=== PATIENT | male | born 1935 | race Caucasian/White ===

== ENCOUNTER → 2024-05-17 09:08 | Outpatient (REF) | payer OTHER, SELFPAY | LOC: RCS 09:08 | PROVIDERS: ATTENDING PHYSICIAN Internal Medicine Cardiovascular Disease; FAMILY PHYSICIAN Student in an Organized Health Care Education/Training Program | DX: Z98.61 Coronary angioplasty status (principal) | CPT/HCPCS: 93306 ==

== ENCOUNTER → 2024-05-20 15:10 | Outpatient (REF) | payer OTHER, SELFPAY | LOC: RAD 15:10 | PROVIDERS: ATTENDING PHYSICIAN Internal Medicine Cardiovascular Disease | DX: Z95.810 Presence of automatic (implantable) cardiac defibrillator (principal); I77.9 Disorder of arteries and arterioles, unspecified; I73.9 Peripheral vascular disease, unspecified; I50.21 Acute systolic (congestive) heart failure; I50.82 Biventricular heart failure | CPT/HCPCS: 71046 ==

== ENCOUNTER 2024-06-21 09:28 | Inpatient (IN) | payer OTHER, SELFPAY ==
[2024-06-17] VITALS (11 sets, daily range): BP systolic 102–124; BP diastolic 53–77; BMI 19.8; BMI 19.0
--- NOTE | 2024-06-17 09:27 | ED.GENMED ---
History of Present Illness
General
Chief Complaint: Chest Pain
Source: patient
Time Seen by Provider: 06/17/24 09:14
History of Present Illness
History of Present Illness:
89-year-old male started with midsternal lower chest pain at 530 this morning. Woke him from his sleep. Moderate nature. Now minimal. Continuous since this morning. No pleuritic pain no radiation to the back arms jaw or neck. No shortness of
breath or nausea. Minimal relief with nitroglycerin. Previous complicated cardiac history including cardiac stents CABG AICD for EF.
Past History
Past History
ED Past Medical History: CAD, GERD, HTN, Hypercholesterolemia, NIDDM, Other (Cardiomyopathy with an EF of 45%, peripheral artery disease status post left femoral endarterectomy, hiatal hernia) and Other (Diverticulosis)
ED Past Surgical History: Cardiac, Tonsilectomy and Other (Prostatectomy, CABG, endarterectomy bilateral femoral arteries, left carotid endarterectomy, tonsillectomy)
Social History
Tobacco: Non-smoker
Alcohol: None
Drug: None
Personal:
Living: with family
Employment: Retired
Family History
Family History: Other (n/c)
Review of Systems
Review of Systems
All Other Systems: Not applicable
Constitutional: Denies fever
Respiratory: Reports no symptoms
ABD/GI: Reports no symptoms
Phy Exam
Physical Exam
Physical Exam:
GENERAL: Alert and oriented in no apparent distress
EYE: Orbits normal.
NECK: Supple, no significant adenopathy.
ENT: Pharynx without erythema
CARDIAC: Regular rate and rhythm with moderate midsystolic murmur. Pacer upper chest wall
LUNGS: Clear breath sounds,normal
ABDOMEN: Soft, without focal tenderness or distention
NEUROLOGICAL: Alert and oriented , grossly non-focal
SKIN: Warm and dry, no rash or lesion, no discoloration, skin intact.
MUSCULOSKELETAL: No edema,no deformity.Good color
PSYCH: Normal and appropriate interaction.
Scores
Heart Score for Chest Pain Patients
STEMI patient?: No
History: Moderately Suspicious
ECG: Nonspecific Repolarization
Age: >/= 65 years
Risk Factors: >/= 3 Risk Factors or History of CAD
Troponin: >1 - <3 x Normal Limit
Heart Score for Chest Pain Patients: 7
Heart Score Risk: 72.7 % MACE over next 6 weeks
Course
Orders/Labs/Results
Orders:
Orders
06/17/24 08:52
EKG [Electrocardiogram (*1)] Urgent
Reason for Study: Chest Pain
EKG- Treatment ONCE
06/17/24 09:26
CXR2 [CR Chest - 2 Views ] Urgent
Comment:
Reason For Exam: cp
06/17/24 09:27
CMP [Comprehensive Metabolic Panel] Urgent
Complete Blood Count/With Diff Urgent
Lipase Urgent
Troponin I Urgent
06/17/24 12:14
Electrocardiogram (*1) Stat
Reason for Study: Other
Other Reason for Exam: chest pain
EKG- Treatment ONCE
06/17/24 12:40
NT-proBNP Urgent
Troponin I Urgent
06/17/24 12:48
Potassium Urgent
Abnormal Lab Results
06/17/24
09:27
RBC 3.04 L 10^6/uL
(4.70-6.10)
Hgb 11.0 L g/dL
(13.0-18.0)
Hct 33.0 L %
(39.0-52.0)
MCV 108.6 H fL
(80.0-94.0)
MCH 36.2 H pg
(27.0-31.0)
RDW 15.9 H %
(11.5-14.5)
Absolute Lymphs (auto) 0.5 L 10^3/uL
(1.2-3.4)
Neutrophils % 76.1 H %
(42.2-75.2)
Lymphocytes % 9.8 L %
(20.5-51.1)
Monocytes % 10.5 H %
(1.7-9.3)
Potassium 5.5 H mmol/L
(3.5-5.1)
BUN 24 H mg/dl
(9-20)
Glucose 174 H mg/dl
(70-99)
Troponin I 0.076 H* ng/ml
06/17/24 09:27
Vital Signs
Initial and Last Documented VS:
Initial Vital Signs
Temp Pulse Resp BP Pulse Ox
97.7 F 80 18 111/60 99
06/17/24 08:59 06/17/24 08:59 06/17/24 08:59 06/17/24 08:59 06/17/24 08:59
Last Documented Vital Signs
Temp Pulse Resp BP Pulse Ox
97.7 F 72 16 120/57 98
06/17/24 08:59 06/17/24 11:30 06/17/24 11:30 06/17/24 11:00 06/17/24 11:30
MDM/Problems Addressed
Differential Diagnosis Includes:
Patient with a complicated cardiac history. Known stents that are down. Vague chest discomfort. Labs and troponin pending. Will also ask for cardiology evaluation. Had an episode of atrial fibrillation yesterday that was brief
*Radiology
Radiology exam reviewed: preliminary read by ED provider (Negative) and radiology read reviewed (Small left effusion)
*EKG
Comparison EKG: no changes
Heart Rate: 79
Rate: normal
Rhythm: other (Atrial sensed ventricular paced)
*Critical Care Note
Total Time (30-74mins, 75-104mins- exclusive of procedures): Not Applicable
Data Reviewed
Review of Other/Old Records Reveals: Labs, Records, Radiology Studies, Testing and Discharge Summary
Update Note
Update Note:
Repeat EKG stable. Discussed with cardiology. Discussed with hospitalist. Patient will be admitted for further cardiac evaluation
ED Attending Note
-
Portions of this chart may have been created with voice recognition software.� Occasional wrong word or��sound alike� substitutions may have occurred due to the inherent limitations of voice recognition software.
Discharge Plan
Departure
Patient Disposition: Admit
Date of Disposition: 06/17/24
Time of Disposition: 12:49
Presentation/result/management discussed w/ accepting MD/DO: Cardiology
Discharge Problem:
Unstable angina
Prescriptions:
No Action
lutein 6 MG capsule
6 mg PO NOON
coenzyme Q10 [Co Q-10] 30 MG capsule
30 mg PO NOON
ascorbic acid (vitamin C) [Vitamin C] 500 MG tablet
500 mg PO NOON
atorvastatin 80 MG tablet
80 mg PO QPM
cyanocobalamin (vitamin B-12) 1,000 MCG tablet
1,000 mcg PO NOON
cholecalciferol (vitamin D3) 1,000 UNITS tablet
1,000 units PO NOON
multivitamin with folic acid [Tab-A-Jennifer] 1 TABLET tablet
1 tab PO NOON
metoprolol succinate 25 MG tablet extended release 24 hr
12.5 mg PO BID 30 Days Qty: 60 0RF
ranolazine 1,000 mg Tablet Extended Release 12 Hr
1,000 mg PO BID
Eliquis 5 mg Tablet
5 mg PO BID
Jardiance 25 mg Tablet
12.5 mg PO DAILY
Entresto 49-51 mg Tablet
0.5 tab PO BID
spironolactone 12.5 MG tablet
12.5 mg PO MOWEFR@0800
digoxin 62.5 mcg (0.0625 mg) Tablet
62.5 mcg PO DAILY
Referrals:
Yanira Corona MD [Family Provider] -
Interventions
Interventions:
*Risk Screen - Suicide Last Done: 06/17/24 09:31
*General Assessment Last Done: 06/17/24 09:31
*Neglect/Abuse Screening Last Done: 06/17/24 09:31
ED- Fall Risk Assessment Last Done: 06/17/24 09:31
*ED COVID-19 Vaccine History Last Done: 06/17/24 09:31
ED- Cardiac Assessment Last Done: 06/17/24 09:30
Discharge Date and Time
Print Language: DIVEHI
[2024-06-17 09:42] LABS: % Basophils 0.4 % (0-2); % Eosinophils 2.8 % (0-6); % Immature Granulocytes 0.4 % (0-0.5); % Lymphocytes 9.8 % (20.5-51.1); % Monocytes 10.5 % (1.7-9.3); % Neutrophils 76.1 % (42.2-75.2); Absolute Eosinophils 0.2 10^3/uL (0-0.7); Absolute Lymphocytes 0.5 10^3/uL (1.2-3.4); Absolute Monocytes 0.6 10^3/uL (0.1-0.6); Absolute Neutrophils 4.1 10^3/uL (1.4-6.5); Mean Corp Hgb Conc. 33.3 g/dL (33.0-37.0); Mean Corpuscular Hgb 36.2 pg (27.0-31.0); Mean Corpuscular Volume 108.6 fL (80.0-94.0); Mean Platelet Volume 10.4 fL (7.4-10.4); Nucleated Red Blood Cells % 0 % (-); Platelet Count 225 10^3/uL (130-400); Red Blood Cell Count 3.04 10^6/uL (4.70-6.10); Red Cell Dist. Width 15.9 % (11.5-14.5); White Blood Cell Count 5.3 10^3/uL (4.8-10.8)
[2024-06-17 09:55] LABS: ALT (SGPT) 27 U/L (0-50); AST (SGOT) 38 U/L (17-59); Alkaline Phosphatase 104 U/L (38-126); Blood Urea Nitrogen 24 mg/dl (9-20); Calcium 9.6 mg/dl (8.4-10.2); Carbon Dioxide 24 mmol/L (22-30); Chloride 104 mmol/L (98-107); Estimated Creatinine Clearance 47 ml/min; Glucose 174 mg/dl (70-99); Lipase 206 U/L (23-300); Potassium 5.5 mmol/L (3.5-5.1); Sodium 141 mmol/L (135-145); Total Bilirubin 0.8 mg/dl (0.2-1.3); eGFR > 60.00
[2024-06-17 10:20] LABS: Troponin I 0.076 ng/ml
--- NOTE | 2024-06-17 11:48 | CON.CAR ---
Addendum entered and electronically signed by Stewart Velasquez MD 06/17/24 14:25:
89-year-old with chest discomfort, troponin 0.076 and history of CABG 26 years ago. Known occlusion of left main and right coronary artery, with occlusion of vein graft to RCA and obtuse marginal system, patent NEGRETE to LAD, evaluated for TAVR at
the [facility] this past spring and found to have only moderate aortic stenosis. Currently he is essentially pain-free. He had atrial fibrillation 2 days ago for 6 and half hours, new diagnosis, and Eliquis was recommended. Currently he feels comfortable.
PMH/PSH: CAD/CABG/ischemic cardiomyopathy/dual-chamber ICD, diabetes, hyperlipidemia, PAD with prior CASH VAN SALESPERSON stents, left carotid endarterectomy, GERD, hypertension, prostate cancer status post prostatectomy, CKD, PAF
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
FH: Noncontributory
Allergies to penicillin and sulfa
Medications: See summary screen - hypotension has been a limiting issue with regards to GDMT
ROS: Negative except as above
121/72, pulse 74, respirate 25 afebrile, head neck exam with temporal wasting, lungs are clear, aortic stenosis murmur, radiates to carotids, JVD approximately 12, murmur radiates to the apex, abdomen scaphoid, extremities without edema distal
pulses diminished, neuro nonfocal
Normal sinus rhythm, EKG AV paced
Chest x-ray effusion left base, possible infiltrate on the left, possibly curly lines, cardiomegaly, ICD
White count 5.3, hemoglobin 11, BUN/creatinine 24 and 1.0, potassium was 5.5, proBNP is 9170, troponin is 0.77, had been 0.076
Plan:
He presents with a non-ST segment elevation NM. To the best of our knowledge his his entire cardiac perfusion is in the mid LAD with occlusion of the left main and right coronary with loss of vein grafts to the RCA and OM, with aortic stenosis that
is moderate by our most recent echo in April 2023, with an EF of 20 to 25% and mild mitral and aortic regurgitation. Peak and mean aortic valve gradients are 30 and 14 with a valve area 1.1. Pulmonary artery pressure was 45.
His proBNP is elevated. Will give IV Lasix x 1
Blood pressure is 121/72. He has an infiltrate at the left base which is probably an effusion related to CHF. Recommend furosemide 20 mg IV x 1.
Given his jump in troponin will heparinize for now and convert to Eliquis..
He is comfortable now. Would be desirable to avoid catheterization. Will discuss with interventional cardiology.
Original Note:
Consultation
Consultation Request
Date/Time Consultation Requested: 06/17/2024
Date/Time Consultation Performed: 06/17/2024 1130
Requesting Provider: Dr Hedrick
Performing Provider: FAROOQ Ac for Dr Velasquez
Reason for Consultation: chest pain
Medical History
-
Chief Complaint: chest pain
History of Present Illness:
Mr Urbina presents to the ED this morning after waking up at 5 AM with 5 out of 10 dull substernal chest pain. No associated symptoms. He took 1 sublingual nitroglycerin with no relief. He took 2 additional sublingual nitroglycerin with
improvement in discomfort to 1 out of 10. He called our office and was advised to go to the emergency room for evaluation. Pain currently 0-1 out of 10, 'I have to think about it to feel it'. Of note, we received a Remote alert from his ICD on
06/15/2024 that he had a 6-1/2-hour episode of atrial fibrillation, heart rates controlled. He has no known history of atrial fibrillation. He was advised to start Eliquis 5 mg twice daily and stop aspirin. 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
Besides today's episode, he has had no chest pain. He denies exertional symptoms. He is not very active due to leg weakness and pain from PAD. He goes to the [facility] once a week. He does not get chest pain with this level of activity. He is on a
stable heart failure regimen and weight has been in stable range at home, 137.5 pounds yesterday. He takes Lasix 20 mg 3 times a week with an extra dose if his weight goes above 146. He has not needed an extra dose in some time.
He ate [place] food for dinner last night but does not feel that his symptoms are due to indigestion.
ER workup: Troponin 0.076, EKG V-paced. Hemoglobin 11.0, BUN/creatinine 24/1.0, potassium 5.5.
Past medical history:
Coronary artery disease status post CABG x 3 () and PCI/CHRIS SVG to PDA 06/17/2021
Ischemic cardiomyopathy
Chronic heart failure reduced EF
Medtronic dual-chamber ICD 10/22/2021
Diabetes mellitus type 2, managed with diet
Hyperlipidemia
Peripheral arterial disease status post left femoral endarterectomy, drug-eluting balloon to right common femoral artery, CASH VAN SALESPERSON right femoral artery
Carotid artery disease status post CEA 07/03 on left
GERD
Hypertension
IBS
Prostate cancer status post prostatectomy
Stage III chronic kidney disease
Atrial fibrillation diagnosed 06/15/2024
Past Medical History
Past Medical History: Other (As above)
Past Surgical History: Other (As above)
Social History
Tobacco: Former Smoker
Alcohol: None
Family History
Family History: Other (Father 95 years, [place], CAD, mother 73 heart disease)
Allergies / Home Medications
Allergy/AdvReac Type Severity Reaction Status Date / Time
Penicillins Allergy Hives Verified 06/17/24 09:03
Sulfa (Sulfonamide Allergy Hives Verified 06/17/24 09:03
Antibiotics)
�Medication �Instructions �Recorded �Confirmed �Type
coenzyme Q10 30 mg capsule (Co 30 mg PO NOON Supplement 06/19/15 06/17/24 History
Q-10)
lutein 6 mg capsule 6 mg PO NOON Supplement 06/19/15 06/17/24 History
ascorbic acid (vitamin C) 500 mg 500 mg PO NOON Supplement 06/29/17 06/17/24 History
tablet (Vitamin C)
atorvastatin 80 mg tablet 80 mg PO QPM High cholesterol 07/29/21 06/17/24 History
cholecalciferol (vitamin D3) 25 1,000 units PO NOON Supplement 07/29/21 06/17/24 History
mcg (1,000 unit) tablet
cyanocobalamin (vitamin B-12) 1,000 mcg PO NOON Supplement 07/29/21 06/17/24 History
1,000 mcg tablet
multivitamin with folic acid 400 1 tab PO NOON Supplement 07/29/21 06/17/24 History
mcg tablet (Tab-A-Jennifer)
metoprolol succinate 25 mg 12.5 mg (1/2 x 25 mg) PO BID 30 10/24/21 06/17/24 Rx
tablet,extended release 24 hr days #60 tabs
apixaban 5 mg tablet (Eliquis) 5 mg PO BID 06/17/24 06/17/24 History
digoxin 62.5 mcg (0.0625 mg) tablet 62.5 mcg PO DAILY 06/17/24 06/17/24 History
empagliflozin 25 mg tablet 12.5 mg PO DAILY 06/17/24 06/17/24 History
(Jardiance)
ranolazine 1,000 mg 1,000 mg PO BID 06/17/24 06/17/24 History
tablet,extended release,12 hr
sacubitril 49 mg-valsartan 51 mg 0.5 tab PO BID 06/17/24 06/17/24 History
tablet (Entresto)
spironolactone 25 mg tablet 12.5 mg PO MOWEFR@0800 06/17/24 06/17/24 History
Review of Systems
-
History Source: Patient
All other systems: Negative unless noted
Physical Exam
Vital Signs
Temp Pulse Resp BP Pulse Ox
97.7 F 72 16 120/57 98
06/17/24 08:59 06/17/24 11:30 06/17/24 11:30 06/17/24 11:00 06/17/24 11:30
Lab Results
06/17/24 09:27
06/17/24 09:27
Troponin I 0.076 ng/ml H* 06/17/24 09:27
GEN: No distress, awake, Ox3
HEENT: supple, anicteric, mmm
LUNGS: CTA, no wheezes/rales
CV: Reg, S1/S2, 2 out of 6 systolic ejection murmur left sternal border
ABD: soft, BS+, NT/ND
EXT: No edema
NEURO: Gross non-focal
SKIN: No rash
Impression / Plan
-
PCP: Yanira Corona
Cardiology: Stewart Velasquez
Impression:
Chest pain waking from sleep, mildly elevated troponin
Coronary artery disease status post CABG and stenting, most recently CHRIS to SVG to PDA 06/17/2021
Ischemic cardiomyopathy
Chronic heart failure reduced EF
Aortic stenosis
Peripheral arterial disease status post left carotid endarterectomy, right left femoral endarterectomy
Atrial fibrillation, new diagnosis 06/15/2024
Dual-chamber ICD, Medtronic
Previous cardiovascular testing:
Echocardiogram 05/17/2024: EF 16%, restrictive filling pattern, mild MR, moderate , peak/mean 36/20, RICHARD 0.8, mild AI, mild TR, normal RV
Echocardiogram 04/2023: EF 20 to 25%
Cardiac catheterization 10/15/2021: 100% occluded left main, 100% occluded LAD with entirety of LAD filled by patent NEGRETE to mid LAD graft, patent circumflex filled by collaterals, 100% proximal RCA occlusion filled via SVG to PDA graft, 50%/eccentric
60% mid RCA stenosis, 95% distal SVG to PDA stenosis, diffuse SVG to OM disease, widely patent NEGRETE to LAD, EF 20%, global hypokinesis with posterior basal/diaphragmatic inferior wall akinesis, successful restenting of SVG-PDA w/ overlapping Promus
stent extending beyond previously placed Xience stent
R/LHC 12/24/2023 at [facility]: Occluded [place] vessels including 100% occluded left main, LAD, left circumflex. RCA occluded proximally. Grafts: Patent NEGRETE to LAD, SVG to PDA occluded, SVG to OM 2 sluggish flow approximately until it becomes occluded
RA: 9, PA 55/17, pulmonary capillary wedge pressure 25, cardiac index 2.3
Myocardial perfusion imagin03/02/2023: Fixed defect of basal anterior septal, basal inferior lateral, basal inferior, basal inferior septal segment, mid anterior septal, mid inferior lateral, mid inferior and mid inferior septal segments
consistent with infarction, functional imaging shows global hypokinesis.
Plan:
-Chest pain upon awakening, 5/10, decreased to 0-1/10 after 3 sublingual nitro.
Troponin mildly elevated x 1, repeat and trend troponins and check serial EKGs
-admit to telemetry
Has extensive history of coronary artery disease status post CABG and multiple stents as well as risk factors including PAD, diabetes, hypertension. Most recent cardiac cath 12/24/2023 shows occluded [place] vessels, occluded vein grafts, patent NEGRETE
to LAD
-Will try to obtain films from cath at [facility]
Heart failure reduced EF:
-Euvolemic on exam with stable weight.
Check BNP
-On good outpatient medication regimen including Entresto, Toprol, spironolactone, digoxin, and as needed Lasix. potassium 5.5 but previously in normal range.. Would repeat. If remains elevated would need to stop spironolactone
-Recent echo 05/17/2024 showed decline in EF to 16%, normal RV. Continue medical therapy
A-fib:
New diagnosis as of 06/15/2024, detected remotely, 6-1/2-hour episode. Currently in normal sinus rhythm.
Will likely start Eliquis 5 mg twice daily
-Check TSH
Aortic stenosis:
-Moderate on recent echocardiogram 05/17/2024
--- NOTE | 2024-06-17 13:10 | HPS.HSE ---
Family Physician
-
Family Physician: Yanira Corona MD
Chief Complaint
-
chest pain
History of Present Illness
89-year-old male past medical history of CAD status post CABG x 3, ischemic cardiomyopathy, HFrEF with ICD, paroxysmal atrial fibrillation, moderate aortic stenosis, PAD status post left femoral endarterectomy, drug-eluting balloon to right common
femoral artery, PASTRY SUPERVISOR right femoral artery, carotid artery disease status post CEA 2017 on the left, type 2 diabetes, hyperlipidemia, hypertension, GERD, IBS, prostate cancer status post prostatectomy, CKD 3B, presenting with dull substernal chest
pain starting this morning upon waking up. He took 1 sublingual nitroglycerin without relief. He took 2 additional with improvement. Denies any shortness of breath. Weight has been stable.
[employer] received an alert from his ICD on 06/15 he has 6.5 hours of atrial fibrillation normal heart rate. No prior history of atrial fibrillation. He was advised to start Eliquis was not started yet.
Patient drinks 1 glass of beer every night. He denies smoking.
Medical History
Past Medical History
Past Medical History: Reports Other (CAD status post CABG x 3, ischemic cardiomyopathy, HFrEF with ICD, paroxysmal atrial fibrillation, moderate aortic stenosis, PAD status post left femoral endarterectomy, drug-eluting balloon to right common
femoral artery, PASTRY SUPERVISOR right femoral artery, carotid artery disease status post CEA 2017 on the )
Past Surgical History: Reports None
Social History
Tobacco: Non-smoker
Alcohol: Daily
Drug: None
Family History
Family History: Not pertinent
Allergies / Home Medications
Allergies reflects when Allergies were last updated in [facility].
Home Medications with original date entered in [facility]
Allergy/Medication List:
Allergies
Allergy/AdvReac Type Severity Reaction Status Date / Time
Penicillins Allergy Hives Verified 06/17/24 09:03
Sulfa (Sulfonamide Allergy Hives Verified 06/17/24 09:03
Antibiotics)
Home Medications
coenzyme Q10 30 mg capsule (Co Q-10) 30 mg PO NOON Supplement 06/19/15
lutein 6 mg capsule 6 mg PO NOON Supplement 06/19/15
ascorbic acid (vitamin C) 500 mg tablet (Vitamin C) 500 mg PO NOON Supplement 06/29/17
atorvastatin 80 mg tablet 80 mg PO QPM High cholesterol 07/29/21
cholecalciferol (vitamin D3) 25 mcg (1,000 unit) tablet 1,000 units PO NOON Supplement 07/29/21
cyanocobalamin (vitamin B-12) 1,000 mcg tablet 1,000 mcg PO NOON Supplement 07/29/21
multivitamin with folic acid 400 mcg tablet (Tab-A-Jennifer) 1 tab PO NOON Supplement 07/29/21
metoprolol succinate 25 mg tablet,extended release 24 hr 12.5 mg (1/2 x 25 mg) PO BID 30 days #60 tabs 10/24/21
apixaban 5 mg tablet (Eliquis) 5 mg PO BID 06/17/24
digoxin 62.5 mcg (0.0625 mg) tablet 62.5 mcg PO DAILY 06/17/24
empagliflozin 25 mg tablet (Jardiance) 12.5 mg PO DAILY 06/17/24
ranolazine 1,000 mg tablet,extended release,12 hr 1,000 mg PO BID 06/17/24
sacubitril 49 mg-valsartan 51 mg tablet (Entresto) 0.5 tab PO BID 06/17/24
spironolactone 25 mg tablet 12.5 mg PO MOWEFR@0800 06/17/24
Review of Systems
-
History Source: Patient
A 12 point ROS was completed and negative except as noted: Yes
Constitutional: Reports No Symptoms
EENT: Reports No Symptoms
Respiratory: Reports No Symptoms
Cardiac: Reports See HPI
Abdomen/GI: Reports No Symptoms
: Reports No Symptoms
Musculoskeletal: Reports No Symptoms
Skin: Reports No Symptoms
Neurological: Reports No Symptoms
Endocrine: Reports No Symptoms
Hematologic/Lymphatic: Reports No Symptoms
Psych: Reports No Symptoms
Physical Exam
Vital Signs
Vital Signs
Temp Pulse Resp BP Pulse Ox
97.7 F 72 16 120/57 98
06/17/24 08:59 06/17/24 11:30 06/17/24 11:30 06/17/24 11:00 06/17/24 11:30
Physical Exam
General: Well Developed, Well Nourished and No Apparent Distress
HEENT: NormoCephalic, Moist mucous membranes and Atraumatic
Respiratory: Clear
Cardiac: S1/S2 and Murmur (systolic ); No Rub
GI: Soft, Non Tender, Non Distended and Normal Bowel Sounds; No Organomegaly
Rectal: Deferred by Provider
Musculoskeletal: No Clubbing, No Cyanosis and No Edema
Skin: No Rash
Neuro: Nonfocal/grossly intact
Laboratory Results
-
06/17/24 09:27
Laboratory Results
Total Bilirubin 0.8 mg/dl (0.2-1.3) 06/17/24 09:27
AST 38 U/L (17-59) 06/17/24 09:27
ALT 27 U/L (0-50) 06/17/24 09:27
Alkaline Phosphatase 104 U/L (38-126) 06/17/24 09:27
Troponin I 0.076 ng/ml H* 06/17/24 09:27
Lipase 206 U/L (23-300) 06/17/24 09:27
Data Reviewed
-
Lab Data: Labs Reviewed by me
Old Records: Reviewed
Impression/Plan
-
IMPRESSION:
PLAN:
# Chest pain possibly ACS
# History of CAD status post CABG x 3
-Troponin of 0.076, continue to trend
-EKG shows AV dual paced rhythm, no ischemic changes visible
-Continue ranolazine
-Cardiology following
# Hyperkalemia secondary to spironolactone/Entresto
-Hold spironolactone
Ischemic cardiomyopathy
Chronic HFrEF with ICD
-Continue empagliflozin
-Continue Entresto
-Cardiology recommending to stop spironolactone
-Patient takes 20 mg Lasix as needed
Paroxysmal atrial fibrillation recently diagnosed
-Start Eliquis
-Continue digoxin
-Continue metoprolol
-Check TSH
Moderate aortic stenosis
PAD status post left femoral endarterectomy, drug-eluting balloon to right common femoral artery, PASTRY SUPERVISOR of right femoral artery
Carotid artery disease status post CEA 2017 on left,
Essential hypertension
Type 2 diabetes
-Continue Jardiance
Hyperlipidemia
-Continue statin
GERD
IBS
Prostate cancer status post prostatectomy
CKD 3B
-Renal function at baseline
Chronic anemia
-Hemoglobin stable
DNR
DVT prophylaxis�Eliquis
Cardiac diet
[2024-06-17 13:19] LABS: NT-proBNP 9170 pg/ml; Troponin I 0.777 ng/ml
[2024-06-17 14:00] LABS: Potassium 4.9 mmol/L (3.5-5.1)
[2024-06-17 15:51] LABS: APTT 43.8 Sec (23.4-35.0)
[2024-06-17 16:03] LABS: Digoxin < 0.4 ng/ml (0.8-2.0)
[2024-06-17 16:25] LABS: TSH Reflex To Free T4 3.12 uIU/ml (0.47-4.68)
[2024-06-17] MEDS: LASIX 20 MG IV (16:26)
[2024-06-17] MEDS: ASPIRIN 325 MG PO (16:26)
[2024-06-17] MEDS: HEPARIN 25000 UNITS/250 ML IV (16:37)
--- NOTE | 2024-06-17 16:45 | PTCARENOTE ---
[address] Arce 1600 Troponin level 1.920 Pt denies chest pain, VS stable. IV heparin drip started. Noted to recheck Troponin level at 2030, continue to monitor pt closely.
[2024-06-17] MEDS: LIPITOR 80 MG PO (18:52)
[2024-06-17] MEDS: TOPROL XL 12.5 MG PO (20:24)
[2024-06-17] MEDS: RANEXA EXTENDED RELEASE 1000 MG PO (20:25)
[2024-06-17] MEDS: ENTRESTO 49 MG/51 MG 0.5 TAB PO (20:25)
--- NOTE | 2024-06-17 21:52 | PTCARENOTE ---
Pt's troponin 3.190. Pt is on Heparin drip infusing at 800U/hr, reports no pain at present. Vineet Nunez notified. Pt resting in bed at present.
[2024-06-17 23:39] LABS: APTT 63.8 Sec (23.4-35.0)
[2024-06-18] VITALS (8 sets, daily range): BP systolic 89–129; BP diastolic 50–71
--- NOTE | 2024-06-18 04:58 | W.PN.UPDATE ---
Update Note
Progress Note Update
RN notified Troponin trending high, 1.9820>>3.190>>5.800, patient asymptomatic, no new complaints, stable VS 118/66 76 95% 18, afebrile, On Heparin drip, Gas Mask Inspector following, will order another Troponin in AM, EKG AM. will make weight reduction specialist
aware.
[2024-06-18 06:02] LABS: % Basophils 0.4 % (0-2); % Eosinophils 4.4 % (0-6); % Immature Granulocytes 0.2 % (0-0.5); % Lymphocytes 12.6 % (20.5-51.1); % Monocytes 11.7 % (1.7-9.3); % Neutrophils 70.7 % (42.2-75.2); Absolute Eosinophils 0.3 10^3/uL (0-0.7); Absolute Lymphocytes 0.7 10^3/uL (1.2-3.4); Absolute Monocytes 0.7 10^3/uL (0.1-0.6); Hematocrit 33.2 % (39.0-52.0); Hemoglobin 11.1 g/dL (13.0-18.0); Mean Corp Hgb Conc. 33.4 g/dL (33.0-37.0); Mean Corpuscular Hgb 34.8 pg (27.0-31.0); Mean Corpuscular Volume 104.1 fL (80.0-94.0); Mean Platelet Volume 10.5 fL (7.4-10.4); Nucleated Red Blood Cells % 0 % (-); Platelet Count 235 10^3/uL (130-400); Red Blood Cell Count 3.19 10^6/uL (4.70-6.10); Red Cell Dist. Width 15.9 % (11.5-14.5); White Blood Cell Count 5.7 10^3/uL (4.8-10.8)
[2024-06-18 06:11] LABS: APTT 88.1 Sec (23.4-35.0)
[2024-06-18 06:24] LABS: ALT (SGPT) 26 U/L (0-50); AST (SGOT) 76 U/L (17-59); Albumin 3.6 g/dl (3.5-5.0); Alkaline Phosphatase 87 U/L (38-126); Blood Urea Nitrogen 21 mg/dl (9-20); Calcium 9.3 mg/dl (8.4-10.2); Carbon Dioxide 25 mmol/L (22-30); Chloride 102 mmol/L (98-107); Estimated Creatinine Clearance 45 ml/min; Glucose 102 mg/dl (70-99); Sodium 139 mmol/L (135-145); Total Bilirubin 1.3 mg/dl (0.2-1.3); Total Protein 6.4 g/dl (6.3-8.2); eGFR > 60.00
[2024-06-18 07:59] LABS: Reticulocyte Count 2.8 % (0.4-2.8)
--- NOTE | 2024-06-18 07:59 | W.PN.HOSP.TC ---
Today's Communication/Plan
-
Continue current care
Await cardiology input
Assessment / Plan
Assessment / Plan
Gen-AAOx3, NAD
HEENT-NC, AT, anicteric, clear oral mm
Neck-supple
CV-reg, no M, +S1/S2
Lungs-clear B/L
Abd-soft, NT, ND
Ext-no edema
Musculoskeletal-no cyanosis, clubbing
Skin-warm and dry
Neuro-grossly non-focal
Psych-calm, cooperative
NSTEMI -symptoms of chest pain resolved. Troponin trending up. Continue IV heparin. Cardiology following.
Atrial fibrillation -relatively new diagnosis. Noted on device interrogation a few days ago this week. Eliquis recommended to start but he did not start prior to admission. Currently on IV heparin. Denies history of stroke or mini stroke. Was
on aspirin prior to admission.
CAD/CABG -1997.
Acute on chronic heart failure with reduced EF -BNP elevated at 9170. Received a dose of IV Lasix. Not on Lasix prior to admission. Chest x-ray with mild left pleural effusion. Not appreciably dyspneic.
Hyperkalemia -resolved. Spironolactone on hold. Still getting Entresto.
Chronic microcytic anemia -hemoglobin near baseline. Check anemia labs.
Hyperlipidemia -continue Lipitor.
Medtronic dual-chamber ICD
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
Carotid artery disease -had left-sided CEA June 2017.
PAD -s/p left femoral endarterectomy, right lower extremity revascularization with drug-eluting stent.
Essential hypertension -stable.
GERD
History of prostate cancer -status post prostatectomy.
DNR
Anticipated Discharge: 24 - 48 hours
Subjective/Interval History
-
Date of Service: June 18, 2024
Patient seen and examined. Eating breakfast. No complaints. Denies chest pain.
Objective Data
-
Labs:
Laboratory Results
06/17/24 06/18/24 06/18/24
23:15 05:21 13:00
WBC 5.7
Hgb 11.1 L
Hct 33.2 L
Plt Count 235
APTT 63.8 H 88.1 H Pending
Sodium 139
Potassium 5.0
Chloride 102
Carbon Dioxide 25
BUN 21 H
Creatinine 1.0
Glucose 102 H
Calcium 9.3
Total Bilirubin 1.3
AST 76 H
ALT 26
Alkaline Phosphatase 87
Vital Signs:
Vital Signs
Temp Pulse Resp BP Pulse Ox
97.9 F 73 20 118/66 95
06/18/24 03:40 06/18/24 03:40 06/18/24 03:40 06/18/24 03:40 06/18/24 03:40
I&O
06/17/24 06/18/24 06/19/24
06:59 06:59 05:59
Intake Total 120 / 120
Output Total 1350 / 1350
Balance -1230 / -1230
Review of Systems
-
History Source: Patient
All other systems: Reviewed and negative
[2024-06-18] MEDS: TOPROL XL 12.5 MG PO ×2 (08:23→19:51)
[2024-06-18] MEDS: ENTRESTO 49 MG/51 MG 0.5 TAB PO ×2 (08:23→19:50)
[2024-06-18] MEDS: FARXIGA 10 MG PO (08:23)
[2024-06-18] MEDS: RANEXA EXTENDED RELEASE 1000 MG PO ×2 (08:23→19:51)
[2024-06-18] MEDS: LOW STRENGTH ASPIRIN 81 MG PO (08:23)
[2024-06-18 08:27] LABS: Iron 113 ug/dl (49-181)
[2024-06-18 08:41] LABS: Percent Saturation 42 % (20-50); Total Iron Binding Capacity 269 ug/dl (261-462)
[2024-06-18 09:35] LABS: Folate > 20.0 ng/ml (2.76-20); Vitamin B12 819 pg/ml (239-931)
--- NOTE | 2024-06-18 10:11 | W.PN.CARDCBS ---
Addendum entered and electronically signed by Stewart Velasquez MD 06/18/24 17:51:
89-year-old with chest discomfort, troponin 0.076 and history of CABG 26 years ago. Known occlusion of left main and right coronary artery, with occlusion of vein graft to RCA and obtuse marginal system, patent NEGRETE to LAD, evaluated for [place]AVR at
the [place] this past spring and found to have only moderate aortic stenosis. Currently he is essentially pain-free. He had atrial fibrillation 2 days ago for 6 and half hours, new diagnosis, and Eliquis was recommended. Currently he feels comfortable.
PMH/PSH: CAD/CABG/ischemic cardiomyopathy/dual-chamber ICD, diabetes, hyperlipidemia, PAD with prior ELEVATOR STARTER stents, left carotid endarterectomy, GERD, hypertension, prostate cancer status post prostatectomy, CKD, PAF
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
FH: Noncontributory
Allergies to penicillin and sulfa
Outpatient medications: See summary screen - hypotension has been a limiting issue with regards to GDMT
Current medications: IV heparin, vitamin C, atorvastatin 80 mg a day, B12, digoxin 62.5 mcg/day, Farxiga 10 mg a day, metoprolol succinate 12.5 mg twice daily, ranolazine 1000 mg twice daily, Entresto 0.5 tablets twice daily, aspirin 81 mg a day and
furosemide 20 mg daily. Spironolactone is on hold
ROS: Negative except as above
95/60, 129/68, pulse 75, intake and output -1.2 L, weight is 63.6 kg, down 2.4 kg, frail, cachectic, but no distress. Temporal wasting, lungs clear, aortic stenosis murmur JVD 8-10, abdomen scaphoid, no edema
EKG AV paced with PVC infusion
Hemoglobin 11.1 white count 5.7, BUN and creatinine 21 and 1.0, peak troponin 5.8
Impression:
Chest pain waking from sleep, resolved with SL NTG, troponin trending up
Coronary artery disease status post CABG and stenting, most recently CHRIS to SVG to PDA 06/17/2021
Ischemic cardiomyopathy
Chronic heart failure reduced EF
Aortic stenosis
Peripheral arterial disease status post left carotid endarterectomy, right left femoral endarterectomy
Atrial fibrillation, new diagnosis 06/15/2024
Dual-chamber ICD, Medtronic
Plan:
Despite non-ST segment elevation [place] with peak troponin 5-6 he seems stable. He has diuresed with a single dose of IV Lasix. Mechanism of non-ST segment elevation unclear. Could he have had a cardioembolic [place]? Would have had to go down LIBERTAD graft,
which seems unlikely. Did he have a small branch vessel acute occlusion of [place] coronaries? Symptoms did not occur during AF.
Will stop heparin and start Eliquis. Continue other meds. Unclear we will be able to continue Entresto at current dose.
Will discuss with interventional cardiology, but I am reluctant to send him to the [facility].
Original Note:
Today's Communication / Plan
-
Transferred to IVU
To consider repeat left heart cath. Patient with known severe multivessel CAD, , and cardiomyopathy. Cath 01/07 at [facility] to LAD only patent vessel.
cath if recurrent CP.
-cont Heparin/ASA/BB/statin/Ranexa
-start Lasix 20 mg daily (home dose)
Impression / Plan
-
PCP: Yanira Corona
Cardiology: Stewart Velasquez
Impression:
Chest pain waking from sleep, resolved with SL NTG, troponin trending up
Coronary artery disease status post CABG and stenting, most recently CHRIS to SVG to PDA 06/17/2021
Ischemic cardiomyopathy
Chronic heart failure reduced EF
Aortic stenosis
Peripheral arterial disease status post left carotid endarterectomy, right left femoral endarterectomy
Atrial fibrillation, new diagnosis 06/15/2024
Dual-chamber ICD, Medtronic
Previous cardiovascular testing:
Echocardiogram 05/17/2024: EF 16%, restrictive filling pattern, mild MR, moderate , peak/mean 36/20, RICHARD 0.8, mild AI, mild TR, normal RV
Echocardiogram 04/2023: EF 20 to 25%
Cardiac catheterization 10/15/2021: 100% occluded left main, 100% occluded LAD with entirety of LAD filled by patent NEGRETE to mid LAD graft, patent circumflex filled by collaterals, 100% proximal RCA occlusion filled via SVG to PDA graft, 50%/eccentric
60% mid RCA stenosis, 95% distal SVG to PDA stenosis, diffuse SVG to OM disease, widely patent NEGRETE to LAD, EF 20%, global hypokinesis with posterior basal/diaphragmatic inferior wall akinesis, successful restenting of SVG-PDA w/ overlapping Promus
stent extending beyond previously placed Xience stent
cardiac cath R/LHC 12/24/2023 at [facility]: Occluded [place] vessels including 100% occluded left main, LAD, left circumflex. RCA occluded proximally. Grafts: Patent NEGRETE to LAD, SVG to PDA occluded, SVG to OM 2 sluggish flow approximately until it becomes
occluded
RA: 9, PA 55/17, pulmonary capillary wedge pressure 25, cardiac index 2.3
Myocardial perfusion imagin03/02/2023: Fixed defect of basal anterior septal, basal inferior lateral, basal inferior, basal inferior septal segment, mid anterior septal, mid inferior lateral, mid inferior and mid inferior septal segments
consistent with infarction, functional imaging shows global hypokinesis.
Plan:
-Presented with chest pain relieved, after 3 sublingual nitro.
-Troponin trending up, 0.076-> 0.77-> 1.9->3.1->5.8 06/18/24 at 0300, repeat today 1000
-transfer to IVU today 06/18/24
-on Heparin gtt, continued ASA
-cont ASA, Ranexa, metoprolol, high intensity statin
-No recurrent chest pain overnight
-EKG 06/18/24 AV paced - no change
-review of telemetry: Normal sinus rhythm, occasional PVCs, couplets, 3 beat, 4 beat nonsustained VT. No afib
Has extensive history of coronary artery disease status post CABG and multiple stents as well as risk factors including PAD, diabetes, hypertension. Most recent cardiac cath 12/24/2023 shows occluded [place] vessels, occluded vein grafts, patent NEGRETE
to LAD
-Will try to obtain films from cath at [facility]
Heart failure reduced EF:
-BNP 9170 - rec'd Lasix 20 mg IV 06/17/24, euvolemic on exam, wt down 5 pounds overnight to 140 pounds, I/O -1230
-On good outpatient medication regimen including Entresto, Toprol, spironolactone, digoxin, Lasix- continue outpt regimen.
-potassium 5.5 06/17/24, repeat 5.0 06/18/24
-restart home Lasix 20 mg daily
-Recent echo 05/17/2024 showed decline in EF to 16%, normal RV. Continue medical therapy
A-fib:
New diagnosis as of 06/15/2024, detected remotely, 6-1/2-hour episode. Currently in normal sinus rhythm with no afib on telemetry
-once off heparin start Eliquis 5 mg twice daily
-TSH 3.12
Aortic stenosis:
-Moderate on recent echocardiogram 05/17/2024
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
Subjective
Date of Service: June 18, 2024
Troponin uptrending
Patient denies chest pain
Diuresed 5 pounds overnight
Objective
Labs:
06/18/24 05:21
06/18/24 05:21
Labs
Hgb 11.1 g/dL (13.0-18.0) L 06/18/24 05:21
Hct 33.2 % (39.0-52.0) L 06/18/24 05:21
Plt Count 235 10^3/uL (130-400) 06/18/24 05:21
APTT 88.1 Sec (23.4-35.0) H 06/18/24 05:21
Sodium 139 mmol/L (135-145) 06/18/24 05:21
Potassium 5.0 mmol/L (3.5-5.1) 06/18/24 05:21
BUN 21 mg/dl (9-20) H 06/18/24 05:21
Creatinine 1.0 mg/dL (0.7-1.3) 06/18/24 05:21
Glucose 102 mg/dl (70-99) H 06/18/24 05:21
Digoxin < 0.4 ng/ml (0.8-2.0) L 06/17/24 15:25
Troponins
06/17/24 06/17/24 06/17/24
09:27 12:40 15:25
Troponin I 0.076 H* 0.777 H* D 1.920 H* D
06/17/24 06/18/24
20:37 03:05
Troponin I 3.190 H* D 5.800 H* D
Vital Signs and I&O:
Vital Signs
Temp Pulse Resp BP Pulse Ox
97.7 F 69 23 129/68 95
06/18/24 07:00 06/18/24 08:23 06/18/24 07:00 06/18/24 08:23 06/18/24 07:00
Vital Signs
Temp Pulse Resp BP Pulse Ox
97.7 F 69 23 129/68 95
06/18/24 07:00 06/18/24 08:23 06/18/24 07:00 06/18/24 08:23 06/18/24 07:00
Intake & Output
06/16/24 06/17/24 06/18/24 06/19/24
06:59 06:59 06:59 05:59
Intake Total 120 / 120
Output Total 1350 / 1350
Balance -1230 / -1230
Physical Exam
Physical Exam
GEN: No distress, awake, Ox3
HEENT: supple, anicteric, mmm
LUNGS: CTA, no wheezes/rales
CV: Reg, S1/S2, 2/6 Systolic ejection murmur, radiates to carotids
ABD: soft, BS+, NT/ND
EXT: No edema, distal pulses decreased. LEs warm
NEURO: Gross non-focal
SKIN: No rash
[2024-06-18] MEDS: LASIX 20 MG PO (11:28)
[2024-06-18] MEDS: LANOXIN 62.5 MCG PO (12:01)
[2024-06-18] MEDS: VITAMIN B-12 1000 MCG PO (12:02)
[2024-06-18] MEDS: VITAMIN D3 (cholecalciferol) 25 MCG PO (12:02)
[2024-06-18] MEDS: VITAMIN C 500 MG PO (12:02)
[2024-06-18] MEDS: THERAGRAN 1 TABLET PO (12:02)
--- NOTE | 2024-06-18 12:10 | TRANSFER ---
Pt tx to IVU via WC. Heparin gtt infusing at 1000 units/hr. A/V paced on heart monitor.
--- NOTE | 2024-06-18 13:02 | PTCARENOTE ---
Rec'd pt from 4W via WC and staff assist. Heparin gtt infusing at 1000 units/hr. AV paced on heart monitor. No c/o CP at this time. VSS. Oriented pt to room. Call axel w/in reach.
[2024-06-18 13:10] LABS: APTT 97.5 Sec (23.4-35.0)
[2024-06-18] MEDS: LIPITOR 80 MG PO (17:20)
[2024-06-18] MEDS: ELIQUIS 5 MG PO (19:52)
--- NOTE | 2024-06-18 20:08 | PTCARENOTE ---
Pt ambulating in the room with stand by assistance and spc. POC discussed pt verbalized understanding. heparin gtt d/c'd and Eliquis given per OCT. UPPER LINING CEMENTER on the monitor. No complains of cp.
[2024-06-19] VITALS (8 sets, daily range): BP systolic 92–116; BP diastolic 49–73; BMI 18.6
[2024-06-19] MEDS: ELIQUIS 5 MG PO ×2 (08:31→19:54)
[2024-06-19] MEDS: ENTRESTO 49 MG/51 MG 0.5 TAB PO ×2 (08:32→19:54)
[2024-06-19] MEDS: RANEXA EXTENDED RELEASE 1000 MG PO ×2 (08:32→19:54)
[2024-06-19] MEDS: LASIX 20 MG PO (08:32)
[2024-06-19] MEDS: LOW STRENGTH ASPIRIN 81 MG PO (08:32)
[2024-06-19] MEDS: FARXIGA 10 MG PO (08:32)
[2024-06-19] MEDS: TOPROL XL 12.5 MG PO ×2 (08:32→19:56)
--- NOTE | 2024-06-19 09:09 | W.PN.HOSP.TC ---
Today's Communication/Plan
-
Continue current care
Assessment / Plan
Assessment / Plan
Gen-AAOx3, NAD
HEENT-NC, AT, anicteric, clear oral mm
Neck-supple
CV-reg, no M, +S1/S2
Lungs-clear B/L
Abd-soft, NT, ND
Ext-no edema
Musculoskeletal-no cyanosis, clubbing
Skin-warm and dry
Neuro-grossly non-focal
Psych-calm, cooperative
NSTEMI -symptoms of chest pain resolved. Troponin peaked. Off IV heparin, Eliquis started. Discussed with cardiology, no plans for catheterization this admission. Dr. Velasquez recommends monitoring overnight.
Atrial fibrillation -relatively new diagnosis. Noted on device interrogation a few days ago this week. Eliquis started.
CAD/CABG -1997.
Acute on chronic heart failure with reduced EF -BNP elevated at 9170. Received a dose of IV Lasix, now on Lasix 20 mg p.o. daily.. Not on Lasix prior to admission. Chest x-ray with mild left pleural effusion. Not appreciably dyspneic.
Hyperkalemia -resolved. Spironolactone on hold. Still getting Entresto.
Chronic microcytic anemia -hemoglobin near baseline. Iron panel normal, B12 and folic acid normal. Recommend follow-up with PCP for further workup. Discussed with patient.
Hyperlipidemia -continue Lipitor.
Medtronic dual-chamber ICD
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
Carotid artery disease -had left-sided CEA June 2017.
PAD -s/p left femoral endarterectomy, right lower extremity revascularization with drug-eluting stent.
Essential hypertension -stable.
GERD
History of prostate cancer -status post prostatectomy.
DNR
Anticipated Discharge: Within 24 hours
Subjective/Interval History
-
Date of Service: June 19, 2024
Patient seen and examined. No complaints.
Objective Data
-
Vital Signs:
Vital Signs
Temp Pulse Resp BP Pulse Ox
97.4 F 72 20 113/73 94
06/19/24 07:31 06/19/24 09:00 06/19/24 07:31 06/19/24 07:33 06/19/24 09:00
I&O
06/18/24 06/19/24 06/20/24
07:59 06:59 06:59
Intake Total
Output Total 500 / 500
Balance -500 / -500
Review of Systems
-
History Source: Patient
All other systems: Reviewed and negative
--- NOTE | 2024-06-19 09:21 | PTCARENOTE ---
Rec'd pt at handoff. Tele- AV-paced. Pt has no complaints at this time. POC reviewed w/ pt. Verbalizes understanding. Call axel w/in reach.
[2024-06-19] MEDS: VITAMIN D3 (cholecalciferol) 25 MCG PO (11:51)
[2024-06-19] MEDS: LANOXIN 62.5 MCG PO (11:51)
[2024-06-19] MEDS: VITAMIN C 500 MG PO (11:51)
[2024-06-19] MEDS: THERAGRAN 1 TABLET PO (11:51)
[2024-06-19] MEDS: VITAMIN B-12 1000 MCG PO (11:51)
--- NOTE | 2024-06-19 12:17 | W.PN.CARDCBS ---
Today's Communication / Plan
-
Check BMP in a.m.
Follow-up echo in a.m.
If stable, consider discharge
Impression / Plan
-
PCP: Yanira Corona
Cardiology: Stewart Velasquez
Impression:
Non-ST segment elevation [place], peak troponin 5.8
Coronary artery disease status post CABG and stenting, most recently CHRIS to SVG to PDA 06/17/2021
Ischemic cardiomyopathy
Chronic heart failure reduced EF
Aortic stenosis
Peripheral arterial disease status post left carotid endarterectomy, right left femoral endarterectomy
Atrial fibrillation, new diagnosis 06/15/2024
Dual-chamber ICD, Medtronic
Previous cardiovascular testing:
Echocardiogram 05/17/2024: EF 16%, restrictive filling pattern, mild MR, moderate , peak/mean 36/20, IRCHARD 0.8, mild AI, mild TR, normal RV
Echocardiogram 04/2023: EF 20 to 25%
Cardiac catheterization 10/15/2021: 100% occluded left main, 100% occluded LAD with entirety of LAD filled by patent NEGRETE to mid LAD graft, patent circumflex filled by collaterals, 100% proximal RCA occlusion filled via SVG to PDA graft, 50%/eccentric
60% mid RCA stenosis, 95% distal SVG to PDA stenosis, diffuse SVG to OM disease, widely patent NEGRETE to LAD, EF 20%, global hypokinesis with posterior basal/diaphragmatic inferior wall akinesis, successful restenting of SVG-PDA w/ overlapping Promus
stent extending beyond previously placed Xience stent
cardiac cath R/LHC 12/24/2023 at [place]: Occluded [place] vessels including 100% occluded left main, LAD, left circumflex. RCA occluded proximally. Grafts: Patent NEGRETE to LAD, SVG to PDA occluded, SVG to OM 2 sluggish flow approximately until it becomes
occluded
RA: 9, PA 55/17, pulmonary capillary wedge pressure 25, cardiac index 2.3
Myocardial perfusion imagin03/02/2023: Fixed defect of basal anterior septal, basal inferior lateral, basal inferior, basal inferior septal segment, mid anterior septal, mid inferior lateral, mid inferior and mid inferior septal segments
consistent with infarction, functional imaging shows global hypokinesis.
Plan:
He appears stable despite his complex cardiac history and current non-ST segment elevation [place] with a peak troponin of 5.8. His only source of cardiac blood flow is his NEGRETE as needed left main and RCA are occluded, and he is lost both vein grafts.
No changes in medications at present. He is tolerating slightly increased dose of Entresto and is on oral furosemide at this time.
Will check follow-up echo study in a.m.
Check BMP.
If stable he could be discharged.
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
Subjective
Date of Service: June 19, 2024:
Allergies: Penicillin and sulfa
Home Meds: Reviewed
PMH/PSH/SH/FH: Reviewed
Current medications: Atorvastatin 80, vitamin D, B12, digoxin 62.5 mcg daily, dapagliflozin 10 mg a day, metoprolol ER 12.5 twice daily, ranolazine 1000 mg twice daily, Entresto 0.5 mg twice daily, aspirin 81 mg daily, furosemide 20 mg daily,
apixaban 5 mg twice souleymane
113/73, low of 89/50, heart rate 72, resp rate 16, frail, no distress, on telephone, temporal wasting, lungs clear, murmur, occasional extrasystoles, abdomen benign no edema, neck veins okay
No labs today, no new studies today
Objective
Labs:
06/18/24 05:21
06/18/24 05:21
Labs
Hgb 11.1 g/dL (13.0-18.0) L 06/18/24 05:21
Hct 33.2 % (39.0-52.0) L 06/18/24 05:21
Plt Count 235 10^3/uL (130-400) 06/18/24 05:21
APTT 97.5 Sec (23.4-35.0) H 11/02/24 12:52
Sodium 139 mmol/L (135-145) 06/18/24 05:21
Potassium 5.0 mmol/L (3.5-5.1) 06/18/24 05:21
BUN 21 mg/dl (9-20) H 06/18/24 05:21
Creatinine 1.0 mg/dL (0.7-1.3) 06/18/24 05:21
Glucose 102 mg/dl (70-99) H 06/18/24 05:21
Digoxin < 0.4 ng/ml (0.8-2.0) L 06/17/24 15:25
Troponins
06/17/24 06/17/24 06/17/24
09:27 12:40 15:25
Troponin I 0.076 H* 0.777 H* D 1.920 H* D
06/17/24 06/18/24 06/18/24
20:37 03:05 10:17
Troponin I 3.190 H* D 5.800 H* D 4.920 H*
Vital Signs and I&O:
Vital Signs
Temp Pulse Resp BP Pulse Ox
36.4 C 72 16 113/73 98
06/19/24 11:54 06/19/24 11:51 06/19/24 11:54 06/19/24 07:33 06/19/24 11:54
Vital Signs
Temp Pulse Resp BP Pulse Ox
36.4 C 72 16 113/73 98
06/19/24 11:54 06/19/24 11:51 06/19/24 11:54 06/19/24 07:33 06/19/24 11:54
Intake & Output
06/17/24 06/18/24 06/19/24 06/20/24
08:59 08:59 07:59 07:59
Intake Total 300 / 300
Output Total
Balance 300 / 300
Physical Exam
Physical Exam
See above
[2024-06-19] MEDS: LIPITOR 80 MG PO (17:48)
[2024-06-20] VITALS (15 sets, daily range): BP systolic 74–103; BP diastolic 46–65; BMI 18.4
--- NOTE | 2024-06-20 01:28 | PTCARENOTE ---
Rec'd pt at change of shift. Pt AAO*3, on TELE monitor in AV paced rhythm, and VSS. Pt denied any pain or discomfort. Pt maintained on high fall risk precautions and agreed to call for staff assistance before ambulating. Pt resting in bed with
call reyna in reach. Plan of care ongoing.
[2024-06-20 06:07] LABS: Blood Urea Nitrogen 23 mg/dl (9-20); Carbon Dioxide 24 mmol/L (22-30); Chloride 102 mmol/L (98-107); Estimated Creatinine Clearance 48 ml/min; Glucose 101 mg/dl (70-99); Potassium 4.9 mmol/L (3.5-5.1); Sodium 135 mmol/L (135-145); eGFR > 60.00
[2024-06-20] MEDS: ENTRESTO 49 MG/51 MG 0.5 TAB PO (07:52)
[2024-06-20] MEDS: LOW STRENGTH ASPIRIN 81 MG PO (07:52)
[2024-06-20] MEDS: RANEXA EXTENDED RELEASE 1000 MG PO ×2 (07:52→19:55)
[2024-06-20] MEDS: TOPROL XL 12.5 MG PO ×2 (07:52→21:11)
[2024-06-20] MEDS: LASIX 20 MG PO (07:52)
[2024-06-20] MEDS: FARXIGA 10 MG PO (07:52)
[2024-06-20] MEDS: ELIQUIS 5 MG PO ×2 (07:53→19:56)
--- NOTE | 2024-06-20 08:24 | PTCARENOTE ---
Pt AOx3, no complaints of pain or discomfort. Standby assist with cane. Pt going to ECHO today. AV paced on tele monitor, VSS. Call reyna within reach.
--- NOTE | 2024-06-20 11:02 | CM ---
mi grover at [facility]- his copay is $47/momth
--- NOTE | 2024-06-20 11:25 | W.PN.CARDCBS ---
Addendum entered and electronically signed by Stewart Abdi MD 06/20/24 23:02:
Updated note: I briefly reviewed images on echocardiogram done today. Would strongly recommend repeat DSE in a few weeks to reassess the AV. The last DSE in 11/2023 was performed at [facility] and was more c/w pseudosevere rather than
true severe . His gradients increased slightly and the RICHARD improved. Visually the AV looks severely stenotic but hemodynamics will be essential and more data drive.
Original Note:
Today's Communication / Plan
-
RECOMMENDATIONS:
-Oral hydrate a little this afternoon
-Hold furosemide in am
-Check proBNP in am
-Ambulate in halls
-Repeat echo to reassess AV: May need to consider repeat DSE as outpatient
-He would like to go home today ? Guess its possible as long as he is not dizzy and ambulates well in halls
Impression / Plan
-
PCP: Yanira Corona
Cardiology: Stewart Velasquez
Impression:
Non-ST segment elevation ME, peak troponin 5.8
Coronary artery disease status post CABG and stenting, most recently CHRIS to SVG to PDA 06/17/2021
Ischemic cardiomyopathy
Chronic heart failure reduced EF
Aortic stenosis
Peripheral arterial disease status post left carotid endarterectomy, right left femoral endarterectomy
Atrial fibrillation, new diagnosis 06/15/2024
Dual-chamber ICD, Medtronic
Previous cardiovascular testing:
-03/02/2023: Myocardial Perfusion Imaging: Fixed defect of basal anterior septal, basal inferior lateral, basal inferior, basal inferior septal segment, mid anterior septal, mid inferior lateral, mid inferior and mid inferior septal segments
consistent with infarction, functional imaging shows global hypokinesis.
-04/21/2023: Echo: LV: EF: 21% vy Simpsons and Visually 20-25%. AK basal inferolateral, inferior and basal inferoseptum. Stage II DD, RV: Normal, LA: Mildly dilated, RA: Mildly dilated, MV: Mild MR, AV: Thickened and Ca+2, Mild-mod with mean
gradient of 14 mmHg, dimensionless index: 0.3, TV: Mild-mod TR iwth estimated PAP 45 mmHG
-11/17/2023: Dobutamine Stress Echo: (to evaluate low-flow low-gradient ): Dobutamine infusion up to 20 mcg/kg/min: Resting EF: 15% and mean gradient 16 mmHg. Dobutamine infusion to 20 mcg/kg/min and the highest mean gradient obtained was 22
mmHg and RICHARD improved to 1.2 cm2. These findings were felt most c/w moderate w contractile reserve
-12/24/2023: Cardiac cath R/LHC 12/24/2023 at [place]: Occluded new [place] vessels including 100% occluded left main, LAD, left circumflex. RCA occluded proximally. Grafts: Patent NEGRETE to LAD, SVG to PDA occluded, SVG to OM 2 sluggish flow approximately
until it becomes occluded. 'Crossed AV easily' with 'no significant AV gradient'. Cardiac output : 4.38 L/min and Cardiac index: 2.3 L/min/m2 Mean Gradient: 13 mmHg.
RA: 9, PA 55/17, pulmonary capillary wedge pressure 25, cardiac index 2.3 (I AM NOT SURE IF THEY EVER OBTAINED Dobutamine stress echo)
Echocardiogram 05/17/2024: EF 16%, restrictive filling pattern, mild MR, moderate , peak/mean 36/20, RICHARD 0.8, mild AI, mild TR, normal RV
Echocardiogram 04/2023: EF 20 to 25%
-05/17/2024: Echo: LV: Severely reduced EF estimated 16% by Lujan's method of discs and less than 20% visually. Stage III diastolic dysfunction. RV: ICD wire is noted but normal size, atria: Mild left atrial dilation, MV: Mild MR, AV: Thickened
and calcified. Mean gradient is 20 mmHg. Dimensionless index is 0.2. Estimated aortic valve area by continuity equation is 0.8 cm�. TV: Mild TR with estimated PAP 39 mmHg
Plan:
-Aortic stenosis:
I reviewed echocardiogram from earlier this month and the AV certainly appears stenotic. EF is severely depressed estimated 15-20%.
He did have an echocardiogram here on 05/17/2024 with a dimensionless index of 0.2 which would be c/w severe aortic stenosis
He had a dobutamine stress echocardiogram at [facility] with findings suggestive of moderate rather than severe
Will repeat echo to reassess gradients although last echo was not too bad
May need to consider repeat DSE here to reassess AV gradients (although the results from [facility] study did not suggest severe ....The appearance of the valve does suggest at least mod )
-Ischemic cardiomyopathy:
Severe LV dysfunction
Catheterization at [facility] on 12/24/23: Mean AV gradient only 13 with a cardiac output of 4.38 at that time
Severe new [place] vessel CADz with 100% occlusion of all new [place] vessels. The SVG-PDA (intervened upon in 2021 x 2) is 100% occluded and the SVG-OM is functionally 100% with patent NEGRETE-LAD.
ICD in place on reasonable HF regimen
-NSTEMI
100% occlusion of new [place] vessels and only patent graft is NEGRETE-LAD
SVG-PDA 100% and SVG-OM 100% occluded
Checking echocardiogram: Suspect maybe related to demand ischemia with new atrial fibrillation
Blood pressures are very marginal with SBP's 70's - 80's
-Hypotension / Cardiomyopathy
Will hold PM Toprol and Entresto dose
Encourage a little oral hydration
Hold furosemide in am
Recheck ProBNP
-Atrial Fibrillation: dx 06/15/2024
On Eliquis
-I spent 70 min locating and then reviewing cath from [facility] and DSE from [facility] which was actually done at [facility] as well as seeing and evaluating patient
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
Subjective
Date of Service: June 20, 2024
Feeling well. BP has been a little low this am
Objective
Labs:
06/18/24 05:21
06/20/24 05:00
Labs
Hgb 11.1 g/dL (13.0-18.0) L 06/18/24 05:21
Hct 33.2 % (39.0-52.0) L 06/18/24 05:21
Plt Count 235 10^3/uL (130-400) 06/18/24 05:21
APTT 97.5 Sec (23.4-35.0) H 06/18/24 12:52
Sodium 135 mmol/L (135-145) 06/20/24 05:00
Potassium 4.9 mmol/L (3.5-5.1) 06/20/24 05:00
BUN 23 mg/dl (9-20) H 06/20/24 05:00
Creatinine 0.9 mg/dL (0.7-1.3) 06/20/24 05:00
Glucose 101 mg/dl (70-99) H 06/20/24 05:00
Digoxin < 0.4 ng/ml (0.8-2.0) L 06/17/24 15:25
Troponins
06/17/24 06/17/24 06/17/24
12:40 15:25 20:37
Troponin I 0.777 H* D 1.920 H* D 3.190 H* D
06/18/24 06/18/24
03:05 10:17
Troponin I 5.800 H* D 4.920 H*
Vital Signs and I&O:
Vital Signs
Temp Pulse Resp BP Pulse Ox
98.3 F 75 20 102/60 92
06/20/24 07:20 06/20/24 07:52 06/20/24 07:20 06/20/24 07:52 06/20/24 07:24
Vital Signs
Temp Pulse Resp BP Pulse Ox
98.3 F 75 20 102/60 92
06/20/24 07:20 06/20/24 07:52 06/20/24 07:20 06/20/24 07:52 06/20/24 07:24
Intake & Output
06/18/24 06/19/24 06/19/24 06/20/24
00:59 00:59 23:59 23:59
Intake Total
Output Total
Balance
Physical Exam
Physical Exam
BP: 84/52
Gen: Sitting in chair, pleasant and conversant. NAD
HEENT: NC/AT, sclera anicteric
Lungs: Clear to bases
CV: RRR
Ext: No edema
[2024-06-20] MEDS: LANOXIN 62.5 MCG PO (11:55)
[2024-06-20] MEDS: THERAGRAN 1 TABLET PO (11:56)
[2024-06-20] MEDS: VITAMIN B-12 1000 MCG PO (11:56)
[2024-06-20] MEDS: VITAMIN D3 (cholecalciferol) 25 MCG PO (11:56)
[2024-06-20] MEDS: VITAMIN C 500 MG PO (11:56)
--- NOTE | 2024-06-20 12:27 | PTCARENOTE ---
BP 74/49 pt is asymptomatic, Dr Abdi made aware. Will continue to monitor.
--- NOTE | 2024-06-20 13:35 | W.PN.HOSP.TC ---
Today's Communication/Plan
-
monitor vitals
see plan
check echo
cardiology to evaluate
pt/ot
Assessment / Plan
Assessment / Plan
Gen-AAOx3, NAD
HEENT-NC, AT, anicteric, clear oral mm
Neck-supple
CV-reg, no M, +S1/S2
Lungs-clear B/L
Abd-soft, NT, ND
Ext-no edema
Musculoskeletal-no cyanosis, clubbing
Skin-warm and dry
Neuro-grossly non-focal
Psych-calm, cooperative
NSTEMI -symptoms of chest pain resolved. Troponin peaked. Off IV heparin, Eliquis started. Discussed with cardiology, no plans for catheterization this admission. Cardiology recommended echocardiogram 06/20.
Atrial fibrillation -relatively new diagnosis. Noted on device interrogation a few days ago this week. Eliquis started.
CAD/CABG -1997.
Acute on chronic heart failure with reduced EF -BNP elevated at 9170. Received a dose of IV Lasix, now on Lasix 20 mg p.o. daily.. Not on Lasix prior to admission. Chest x-ray with mild left pleural effusion. Not appreciably dyspneic.
Hyperkalemia -resolved. Spironolactone on hold. Still getting Entresto.
Chronic microcytic anemia -hemoglobin near baseline. Iron panel normal, B12 and folic acid normal. Recommend follow-up with PCP for further workup. Discussed with patient.
Hyperlipidemia -continue Lipitor.
Medtronic dual-chamber ICD
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
Carotid artery disease -had left-sided CEA June 2017.
PAD -s/p left femoral endarterectomy, right lower extremity revascularization with drug-eluting stent.
Essential hypertension -stable.
GERD
History of prostate cancer -status post prostatectomy.
DNR
Anticipated Discharge: Within 24 hours
Subjective/Interval History
-
Date of Service: June 20, 2024
Denies pain
Objective Data
-
Labs:
Laboratory Results
06/20/24
05:00
Sodium 135
Potassium 4.9
Chloride 102
Carbon Dioxide 24
BUN 23 H
Creatinine 0.9
Glucose 101 H
Calcium 9.0
Vital Signs:
Vital Signs
Temp Pulse Resp BP Pulse Ox
97.7 F 70 18 74/49 98
06/20/24 12:14 06/20/24 12:23 06/20/24 12:14 06/20/24 12:23 06/20/24 12:18
I&O
06/19/24 06/20/24 06/21/24
06:59 06:59 06:59
Intake Total 780 / 780
Output Total 500 / 500
Balance 280 / 280
--- NOTE | 2024-06-20 15:43 | CM ---
spoke to pt in room, he uses [facility] for his perscription, cm put 30 day free eliquis coupon in pts red dc folder. pt understands his scripts will be sent to [facility] and he will fill the 30 day free eliquis at [facility].
[2024-06-20] MEDS: LIPITOR 80 MG PO (17:28)
[2024-06-21] VITALS (10 sets, daily range): BP systolic 90–99; BP diastolic 52–60; PULSE 70–76; O2SAT 94–95; BMI 18.3
--- NOTE | 2024-06-21 02:15 | PTCARENOTE ---
Rec'd pt at change of shift. PT on TELE monitor in AV paced rhythm with VSS and AAO*3. Pt with systolic blood pressure in the 90's and Dr. Condon notified. MD ordered to hold Entresto/Valsartan and administer Toprolol 12.5. Pt BP monitored
with administration (see flowsheet). Pt denies any lightheadedness or discomfort and resting with call reyna in reach. Pt agreed to call for staff assistance before ambulating and maintained on high fall risk precautions. See worklist and MAR for
full pt assessment and care. Plan of care ongoing.
[2024-06-21 06:33] LABS: Blood Urea Nitrogen 23 mg/dl (9-20); Carbon Dioxide 22 mmol/L (22-30); Chloride 101 mmol/L (98-107); Estimated Creatinine Clearance 43 ml/min; Glucose 94 mg/dl (70-99); Potassium 4.8 mmol/L (3.5-5.1); Sodium 135 mmol/L (135-145); eGFR > 60.00
[2024-06-21 06:39] LABS: NT-proBNP 3990 pg/ml
[2024-06-21] MEDS: TOPROL XL 12.5 MG PO (08:00)
[2024-06-21] MEDS: LOW STRENGTH ASPIRIN 81 MG PO (08:00)
[2024-06-21] MEDS: FARXIGA 10 MG PO (08:00)
[2024-06-21] MEDS: ELIQUIS 5 MG PO (08:00)
[2024-06-21] MEDS: RANEXA EXTENDED RELEASE 1000 MG PO (08:00)
--- NOTE | 2024-06-21 08:28 | PTCARENOTE ---
Assumed care. Patient eating breakfast. BP 91/53, patient denies lightheadedness or dizziness at rest or with ambulation. AV paced HR 70's, call reyna in reach
[2024-06-21] MEDS: LANOXIN 62.5 MCG PO (11:15)
[2024-06-21] MEDS: VITAMIN C 500 MG PO (11:16)
[2024-06-21] MEDS: VITAMIN B-12 1000 MCG PO (11:17)
[2024-06-21] MEDS: THERAGRAN 1 TABLET PO (11:17)
[2024-06-21] MEDS: VITAMIN D3 (cholecalciferol) 25 MCG PO (11:17)
--- NOTE | 2024-06-21 12:08 | W.PN.CARDCBS ---
Addendum entered and electronically signed by Karsten Mckeon DO 06/21/24 12:59:
I saw and examined the patient.
The Actuary Clerk's note was reviewed and I agree with the note.
Comment:
Plan:
Lower dose of Entresto due to hypotension and hold Aldactone
Cont Toprol
Gentle diuresis as outpt lasix 20 mg MWF
Dobutamine stress as outpt to eval for low flow
Medical therapy of trop 5.8, recent cath at [facility] December 2023.
Stable for d/c with follow up from cardiac perspective.
Original Note:
Today's Communication / Plan
-
Stop spironolactone
Change from Entresto 49/51 mg 1/2 tab BID to Entresto 24/26 mg BID
Cont Toprol XL 12.5 mg BID
Recommend Lasix 20 mg MWF as an outpatient
Impression / Plan
-
PCP: Yanira Corona
Cardiology: Stewart Velasquez
Impression:
Non-ST segment elevation WI, peak troponin 5.8
Coronary artery disease status post CABG and stenting, most recently CHRIS to SVG to PDA 06/17/2021
Ischemic cardiomyopathy
Chronic heart failure reduced EF
Aortic stenosis
Peripheral arterial disease status post left carotid endarterectomy, right left femoral endarterectomy
Atrial fibrillation, new diagnosis 06/15/2024
Dual-chamber ICD, Medtronic
Previous cardiovascular testing:
-03/02/2023: Myocardial Perfusion Imaging: Fixed defect of basal anterior septal, basal inferior lateral, basal inferior, basal inferior septal segment, mid anterior septal, mid inferior lateral, mid inferior and mid inferior septal segments
consistent with infarction, functional imaging shows global hypokinesis.
-04/21/2023: Echo: LV: EF: 21% vy Simpsons and Visually 20-25%. AK basal inferolateral, inferior and basal inferoseptum. Stage II DD, RV: Normal, LA: Mildly dilated, RA: Mildly dilated, MV: Mild MR, AV: Thickened and Ca+2, Mild-mod with mean
gradient of 14 mmHg, dimensionless index: 0.3, TV: Mild-mod TR iwth estimated PAP 45 mmHG
-11/17/2023: Dobutamine Stress Echo: (to evaluate low-flow low-gradient ): Dobutamine infusion up to 20 mcg/kg/min: Resting EF: 15% and mean gradient 16 mmHg. Dobutamine infusion to 20 mcg/kg/min and the highest mean gradient obtained was 22
mmHg and RICHARD improved to 1.2 cm2. These findings were felt most c/w moderate w contractile reserve
-12/24/2023: Cardiac cath R/LHC 12/24/2023 at [place]: Occluded [place] vessels including 100% occluded left main, LAD, left circumflex. RCA occluded proximally. Grafts: Patent NEGRETE to LAD, SVG to PDA occluded, SVG to OM 2 sluggish flow approximately
until it becomes occluded. 'Crossed AV easily' with 'no significant AV gradient'. Cardiac output : 4.38 L/min and Cardiac index: 2.3 L/min/m2 Mean Gradient: 13 mmHg.
RA: 9, PA 55/17, pulmonary capillary wedge pressure 25, cardiac index 2.3 (I AM NOT SURE IF THEY EVER OBTAINED Dobutamine stress echo)
Echocardiogram 05/17/2024: EF 16%, restrictive filling pattern, mild MR, moderate , peak/mean 36/20, RICHARD 0.8, mild AI, mild TR, normal RV
Echocardiogram 04/2023: EF 20 to 25%
-05/17/2024: Echo: LV: Severely reduced EF estimated 16% by Lujan's method of discs and less than 20% visually. Stage III diastolic dysfunction. RV: ICD wire is noted but normal size, atria: Mild left atrial dilation, MV: Mild MR, AV: Thickened
and calcified. Mean gradient is 20 mmHg. Dimensionless index is 0.2. Estimated aortic valve area by continuity equation is 0.8 cm�. TV: Mild TR with estimated PAP 39 mmHg
-06/20/2024: Echo: LV 17%, stage III diastolic dysfunction, low normal RV systolic function, mild to moderate MR, mild TR, calcified trileaflet aortic valve with peak/mean 34/17 mmHg. Low gradient aortic stenosis at least moderate by this assessment
but suspect more severe, trace aortic regurgitation
Plan:
-Patient with h/o moderate to severe and CM with EF as low as 16% this admission. Previous work-up at [place] via [place] and also at [facility]. The last DSE in 11/2023 was performed at [facility] and was more c/w pseudosevere rather than true
severe . His gradients increased slightly and the RICHARD improved. Visually the AV looks severely stenotic but hemodynamics will be essential. Current plan as discussed with patient is to perform another DSE here at in the next few weeks.
-Troponin peaked at 5.8 this admission and was managed as a NSTEMI. Plan is for medical management. Cardiac cath at [facility] on 12/24/23: Mean AV gradient only 13 with a cardiac output of 4.38 at that time and severe osage vessel CAD with 100% occlusion
of all osage vessels. The SVG-PDA (intervened upon in 2021 x 2) is 100% occluded and the SVG-OM is functionally 100% with patent NEGRETE-LAD.
-Patient with ischemic CM and severe LV dysfunction. ICD in place on reasonable HF regimen
-Weight is down at least 6 lbs with IV diuresis. Will d/c to home on Lasix 20 mg MWF. Patient was not taking a loop diuretic prior to admission.
-Outpatient dose of Entresto 49/51 mg 1/2 tablet twice a day was held overnight and again 06/21/24 AM. Will decrease dose to Entresto 24/26 mg BID.
-Will stop outpatient dose of spironolactone 12.5 mg MWF.
-Cont usual dose of Toprol XL 12.5 mg BID
-Outpatient dose of digoxin 0.0625 mg daily continued and digoxin level was less than 0.4 this admission.
-Cont usual dose of Ranexa 1000 mg BID
-Patient with new Afib seen on device alert to the cardiology office on 06/15/24. Aspirin was stopped and Eliquis 5 mg BID (age 89, wt 61.1 kg, Cre 1.0) was started. Follow weight and Cre and might need to change Eliquis dose, he is on the edge with
his weight of 61 kg.
-Patient is stable for d/c to home with outpatient arrangements being made for DSE at in the coming weeks.
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
Subjective
Date of Service: June 21, 2024
He feels well and wants to go home
Objective
Labs:
06/18/24 05:21
06/21/24 05:21
Labs
Hgb 11.1 g/dL (13.0-18.0) L 06/18/24 05:21
Hct 33.2 % (39.0-52.0) L 06/18/24 05:21
Plt Count 235 10^3/uL (130-400) 06/18/24 05:21
APTT 97.5 Sec (23.4-35.0) H 06/18/24 12:52
Sodium 135 mmol/L (135-145) 06/21/24 05:21
Potassium 4.8 mmol/L (3.5-5.1) 06/21/24 05:21
BUN 23 mg/dl (9-20) H 06/21/24 05:21
Creatinine 1.0 mg/dL (0.7-1.3) 06/21/24 05:21
Glucose 94 mg/dl (70-99) 06/21/24 05:21
Digoxin < 0.4 ng/ml (0.8-2.0) L 06/17/24 15:25
Vital Signs and I&O:
Vital Signs
Temp Pulse Resp BP Pulse Ox
97.6 F 70 16 91/53 96
06/21/24 07:23 06/21/24 11:15 06/21/24 07:23 06/21/24 08:00 06/21/24 09:00
Vital Signs
Temp Pulse Resp BP Pulse Ox
97.6 F 70 16 91/53 96
06/21/24 07:23 06/21/24 11:15 06/21/24 07:23 06/21/24 08:00 06/21/24 09:00
Intake & Output
06/19/24 06/20/24 06/21/24 06/22/24
06:59 06:59 06:59 06:59
Intake Total 780 / 780 500 / 500
Output Total 500 / 500
Balance 280 / 280 500 / 500
Physical Exam
Physical Exam
GEN: AAOx3
HEENT: MMM
LUNGS: No audible wheeze
CV: SR on tele
ABD: ND
EXT: No edema
NEURO: Gross non-focal
SKIN: No rash
--- NOTE | 2024-06-21 12:26 | W.PN.HOSP.TC ---
Addendum entered and electronically signed by Myke Gambino MD 06/21/24 13:21:
Discussed with cardiology and will discharge patient home. Discontinued Aldactone. Lasix 20 mg Thursday and Thursday. decreased Entresto
Time of discharge 38 minutes
Original Note:
Today's Communication/Plan
-
Monitor vital signs
see plan
Awaiting cardiology evaluation, would likely need med titration
Holding Lasix
Monitor blood pressure closely, denies any dizziness
Assessment / Plan
Assessment / Plan
Gen-AAOx3, NAD
HEENT-NC, AT, anicteric, clear oral mm
Neck-supple
CV-reg, no M, +S1/S2
Lungs-clear B/L
Abd-soft, NT, ND
Ext-no edema
Musculoskeletal-no cyanosis, clubbing
Skin-warm and dry
Neuro-grossly non-focal
Psych-calm, cooperative
NSTEMI -symptoms of chest pain resolved. Troponin peaked. Off IV heparin, Eliquis started. Discussed with cardiology, no plans for catheterization this admission. Cardiology recommended echocardiogram 06/20 which shows EF 17%,
Atrial fibrillation -relatively new diagnosis. Noted on device interrogation a few days ago this week. Eliquis started.
CAD/CABG -1997.
Acute on chronic heart failure with reduced EF -BNP elevated at 9170. Received a dose of IV Lasix, now on Lasix 20 mg p.o. daily which is on hold due to hypotension. Not on Lasix prior to admission. Chest x-ray with mild left pleural effusion.
Not appreciably dyspneic.
Hyperkalemia -resolved. Spironolactone on hold. Still getting Entresto.
Chronic microcytic anemia -hemoglobin near baseline. Iron panel normal, B12 and folic acid normal. Recommend follow-up with PCP for further workup. Discussed with patient.
Hyperlipidemia -continue Lipitor.
Medtronic dual-chamber ICD
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
Carotid artery disease -had left-sided CEA June 2017.
PAD -s/p left femoral endarterectomy, right lower extremity revascularization with drug-eluting stent.
Essential hypertension -stable.
GERD
History of prostate cancer -status post prostatectomy.
DNR
Anticipated Discharge: Today
Subjective/Interval History
-
Date of Service: June 21, 2024
denies pain
Objective Data
-
Labs:
Laboratory Results
06/21/24
05:21
Sodium 135
Potassium 4.8
Chloride 101
Carbon Dioxide 22
BUN 23 H
Creatinine 1.0
Glucose 94
Calcium 9.0
Vital Signs:
Vital Signs
Temp Pulse Resp BP Pulse Ox
97.6 F 70 16 91/53 96
06/21/24 07:23 06/21/24 11:15 06/21/24 07:23 06/21/24 08:00 06/21/24 09:00
I&O
06/20/24 06/21/24 06/22/24
06:59 06:59 06:59
Intake Total 780 / 780 500 / 500
Output Total 500 / 500
Balance 280 / 280 500 / 500
[2024-06-21] MEDS: ENTRESTO 49 MG/51 MG PO (12:59)
[2024-06-21] MEDS: ENTRESTO 24 MG/26 MG 1 TAB PO (13:01)
--- NOTE | 2024-06-21 13:18 | W.DCSUMMARY ---
Discharge Summary
Discharge Data
Date of Admission: 06/21/24
Date of Discharge: 06/21/24
-
Pending Results: No
Hospital Course
89-year-old male with past medical history of CAD/CABG, ischemic cardiomyopathy, hyperlipidemia, aortic stenosis, ICD, diabetes mellitus 2, carotid artery disease status post CEA, PAD, essential hypertension, GERD, prostate cancer, recent A-fib came
to the hospital with non-ST elevation myocardial infarction which was likely thought was secondary to possible A-fib. Patient was seen by cardiology throughout hospitalization and no cardiac catheterization was performed. Echocardiogram was done
which showed ejection fraction of 17% with aortic stenosis. Patient was also hypotensive so his Entresto was decreased and his Aldactone was stopped. Losartan, initially he required a dose of IV Lasix however was later transitioned to p.o. Lasix.
Once his symptoms continue to improve, he was then discharged home with instructions to follow-up closely with primary care provider and cardiology outpatient.
Discharge Plan
-
Patient Disposition: Home (Routine Discharge)
Discharge Diagnosis/Procedures: Aortic stenosis
Ischemic cardiomyopathy
Atrial fibrillation
Non ST elevation myocardial infarction
Acute on chronic heart failure with reduced EF
Diet: As tolerated and 2 Gram Sodium
Activity: As tolerated
Driving Restrictions: As prior to admission
Bathing Restrictions: None
Others Tests: -You are scheduled for a dobutamine stress echo to be performed in the cardiac services department at [facility] on 07/08/24 at 10 AM. Please register and bring your order slip to the main lobby 15 minutes prior to
your appointment time. You can take your usual medications with a sip of water on the morning of the test, but nothing to eat. Order slip attached.
Other Services: VN
Specialty Instructions: Weigh Daily- Call MD for wt gain/loss 3 lbs overnight/5 lbs in 1 week
Referrals:
Yanira Corona MD [Family Provider] - in less than 1 week
Stewart Velasquez MD [Active] - 07/06/24 12:40 pm (You are scheduled to see Dr. Velasquez's physician assistant professor of marine biology, Angle, at the [place] office on 07/06/24 at 12:40 PM. Please call [phone] if you need to reschedule.)
Additional Discharge Medication Instructions: -STOP taking spironolactone.
-STOP taking Entresto 49/51 mg 1/2 tablet twice a day. Start taking Entresto 24/26 mg twice a day instead.
-Start taking Lasix (furosemide) 20 mg every Thursday, Thursday and Thursday. You should expect to urinate more than usual after taking Lasix.
-Start taking aspirin 81 mg daily.
-Prescriptions were e-scribed to your local pharmacy, but also printed out for you to pass along to the [facility].
Prescriptions:
New
aspirin 81 mg Tablet,Chewable
81 mg PO DAILY Qty: 30 0RF
furosemide 20 mg Tablet
20 mg PO MOWEFR Qty: 12 11RF
Entresto 24-26 mg tablet
1 tab PO BID Qty: 60 11RF
Continued
lutein 6 MG capsule
6 mg PO NOON
coenzyme Q10 [Co Q-10] 30 MG capsule
30 mg PO NOON
ascorbic acid (vitamin C) [Vitamin C] 500 MG tablet
500 mg PO NOON
atorvastatin 80 MG tablet
80 mg PO QPM
cyanocobalamin (vitamin B-12) 1,000 MCG tablet
1,000 mcg PO NOON
cholecalciferol (vitamin D3) 1,000 UNITS tablet
1,000 units PO NOON
multivitamin with folic acid [Tab-A-Jennifer] 1 TABLET tablet
1 tab PO NOON
metoprolol succinate 25 MG tablet extended release 24 hr
12.5 mg PO BID 30 Days Qty: 60 0RF
ranolazine 1,000 mg Tablet Extended Release 12 Hr
1,000 mg PO BID
Eliquis 5 mg Tablet
5 mg PO BID
Jardiance 25 mg Tablet
12.5 mg PO DAILY
digoxin 62.5 mcg (0.0625 mg) Tablet
62.5 mcg PO DAILY
Discontinued
Entresto 49-51 mg Tablet
0.5 tab PO BID
spironolactone 12.5 MG tablet
12.5 mg PO MOWEFR@0800
Discharge Orders:
Discharge Patient (As Directed); Ordered 06/21/24
Ordered By: Myke Gambino
Care Plan Goals
Care Plan Goals:
Problem: Readiness for enhanced knowledge related to diagnosis and treatment plan
Goal: Understand your diagnosis and treatment plan needs, including medications if applicable.
Instructions: Know your diagnosis, underlying causes and treatment plan options, including medications if applicable. Consult with your health care team to learn about your diagnosis and treatment plan, including medications if applicable.
Discharge Date and Time
Discharge Date/Time: 06/21/24 15:05
Print Language: SOU[place]UD[place]
== END 2024-06-21 15:05 | disposition home or self-care (01) | DRG 280 ==
LOC: IVU 09:28
PROVIDERS: Hospitalist; Nurse Practitioner; Nurse Practitioner Gerontology; ADMITTING PHYSICIAN Hospitalist; ATTENDING PHYSICIAN Internal Medicine; CONSULT PHYSICIAN Internal Medicine Cardiovascular Disease; EMERGENCY PHYSICIAN Emergency Medicine; FAMILY PHYSICIAN Student in an Organized Health Care Education/Training Program
DX: I21.4 Non-ST elevation (NSTEMI) myocardial infarction (principal); I50.23 Acute on chronic systolic (congestive) heart failure; I13.0 Hypertensive heart and chronic kidney disease with heart failure and stage 1 through stage 4 chronic kidney disease, or unspecified chronic kidney disease; I25.10 Atherosclerotic heart disease of native coronary artery without angina pectoris; I25.5 Ischemic cardiomyopathy; I48.0 Paroxysmal atrial fibrillation; N18.32 Chronic kidney disease, stage 3b; I08.0 Rheumatic disorders of both mitral and aortic valves; Z66 Do not resuscitate; Z79.84 Long term (current) use of oral hypoglycemic drugs; Z79.82 Long term (current) use of aspirin; Z79.01 Long term (current) use of anticoagulants; Z95.5 Presence of coronary angioplasty implant and graft
CPT/HCPCS: 93308; 71046; 80048; 80053; 80162; 82607; 82728; 82746; 83540; 83550; 83690; 83880; 84132; 84443; 84484; 85025; 85045; 85730; 93005; 93289; 93321; 93325; 97163; 97166; 99285

== ENCOUNTER → 2024-07-08 09:48 | Outpatient (REF) | payer OTHER, SELFPAY | LOC: RCS 09:48 | PROVIDERS: ATTENDING PHYSICIAN Internal Medicine Cardiovascular Disease; FAMILY PHYSICIAN Student in an Organized Health Care Education/Training Program | DX: I35.0 Nonrheumatic aortic (valve) stenosis (principal); I25.5 Ischemic cardiomyopathy | CPT/HCPCS: 93017; 93350 ==